=== PATIENT | female | born 1935 | race Caucasian/White ===

== ENCOUNTER 2017-09-01 10:49 | Inpatient (IN) | payer OTHER ==
[~2017-09-01] VITALS: Ht 162.6 cm; Wt 57.6 kg
--- NOTE | ~2017-09-01 | D ---
[facility] [place] [address] DISCHARGE SUMMARY Name: OSCAR ROA Room #: 411-P [facility] IN M.R.#: [id number] Admission: 09/01/17 Attend Phys: Armani Do MD Discharge: 09/06/17 Date of : 34 Report #: [id number] THIS REPORT FOR: //name// CC: Armani Do DATE OF SERVICE: 09/06/2017 FINAL DIAGNOSES: 1. Right hip fracture. 2. Moderate protein-calorie malnutrition. 3. Anemia due to acute blood loss. HOSPITAL COURSE: The patient was admitted with right hip pain, diagnosed with a hip fracture. She was taken by ortho to the operating room and had an IM nail procedure. Postoperatively, she was on a nonweightbearing status. She had a mild dip in her hemoglobin, but no need for transfusion. She had no other interval complication. DISPOSITION: She will be transferred to [facility]. I will follow her stay there. I signed her transfer orders and medications. She will continue DVT prophylaxis with Lovenox. By: [id number] Nakul Black MD /nt
--- NOTE | ~2017-09-01 | O ---
[facility] [place] [address] OPERATIVE REPORT Name: OSCAR ROA Room #: 411-P ADM IN M.R.#: [id number] Admission: 09/01/17 Attend Phys: Armani Do MD Discharge: Date of : 34 Report #: [id number] THIS REPORT FOR: //name// CC: Armani Do DATE OF SERVICE: 09/02/2017 SERVICE: Orthopedics. FACILITY: [facility]. SURGEON: Milton Tolbert MD LATEX DIPPER: None. PREOPERATIVE DIAGNOSIS: Displaced right intertrochanteric hip fracture. POSTOPERATIVE DIAGNOSIS: Displaced right intertrochanteric hip fracture. PROCEDURE: IM nail treatment of right intertrochanteric hip fracture. COMPLICATIONS: None. DRAINS: None. SPECIMENS: None. ANESTHESIA TYPE: General endotracheal. FINDINGS: 1. Good reduction on fluoroscopy. 2. Lozano and Nephew InterTAN intramedullary nail, size 10 mm x 125 degree neck, short nail with 90 and 85 mm compression screws proximally and third 8 mm distal locking screw. HISTORY AND INDICATIONS: The patient is an 82-year-old female who fell and sustained a right hip fracture. She was admitted to [facility] and surgical treatment was discussed in detail with her primary power of insurance attorney, who is her cousin Randall. Risks, benefits, alternatives and indication for surgery were discussed. Risks include but not limited to pain, bleeding, infection, injury to nerves or blood vessels, persistent pain despite surgical intervention, failure of any repairs or reconstruction, malunion, nonunion, need for further surgery including revision as well as hardware removal and complications related to anesthesia such as stroke, heart attack, pulmonary complications, thromboembolic disease and . Despite these risks, she wished to proceed. [facility] [address] [place] [address] OPERATIVE REPORT Name: CANDACE ROAJORIE Room #: 411-P [facility] IN .R.#: [id number] Admission: 09/01/17 Attend Phys: Armani Do MD Discharge: Date of : 34 Report #: [id number] PROCEDURE IN DETAIL: After right lower extremity was correctly identified in preoperative holding area as the operative extremity, the patient was taken to the operating room and placed supine on the operating table after general endotracheal anesthesia was induced without complication. She was padded appropriately. Prophylactic antibiotics were administered at appropriate time. C-arm was used to evaluate the right hip. A timeout procedure was performed. A reduction maneuver was performed with abduction followed by traction, adduction and internal rotation, checking on multiple planes of x-ray. Feeling appropriate reduction had been achieved, then the right leg was prepped and draped in standard sterile fashion. Under fluoroscopy, a guidepin was placed in the proximal femur in a standard fashion and advanced into the metaphyseal bone. When the appropriate guide pin position was confirmed on multiple planes of x-ray, an entry reamer was used to obtain access to the femoral canal. The canal was then reamed to an 11.5 mm diameter canal to allow a 10 mm Lozano and Nephew InterTAN nail. This was then advanced in a standard fashion down to the appropriate level. The reduction was maintained. Then, the outrigger was used to establish the trajectory for the compression screws and the guide pin was placed into the femoral head, confirming on biplanar x-ray that the position was appropriate. The proximal femur was then reamed and drilled for the proximal locking screws with plan for approximately 5 mm of compression. The first screw was placed in the proximal position and then the second screw was placed distally providing compression while fluoroscopy was followed to ensure maintenance of a good reduction. This did in fact provide excellent compression and essentially anatomic reduction. After the compression was completed, the guide sleeve was removed and then using the outrigger the distal interlocking screw was placed in the appropriate position, confirmed on multiple planes of x-ray and then the outrigger was removed. Final x-rays were taken and the incisions were irrigated and then closed with 0 Vicryl suture deep followed by 2-0 Vicryl and skin wilbert. Sterile dressing was applied. The patient was awakened from anesthesia and taken to recovery room in stable condition. There were no complications. All counts were recorded as correct. ESTIMATED BLOOD LOSS: 100 mL. <ELECTRONICALLY SIGNED> By: Milton Tolbert MD 09/02/17 2232 [id number] Milton Tolbert MD /nt
--- NOTE | ~2017-09-01 | H ---
[facility] [place] [address] HISTORY AND PHYSICAL Name: OSCAR ROA Room #: 411-P ADM IN M.R.#: [id number] Admission: 09/01/17 Attend Phys: Armani Do MD Discharge: Date of : 34 Report #: [id number] THIS REPORT FOR: //name// CC: Armani Do DATE OF SERVICE: 09/01/2017 HISTORY OF PRESENT ILLNESS: This is an 82-year-old female from [facility] with accidental fall. She lives in assisted living and did not have any lightheadedness just fell accidentally and broke her right hip. She is now admitted for further evaluation and hip pinning. PAST MEDICAL HISTORY: Noteworthy for those findings in the HPI, but of importance is recent gastrointestinal bleed, apparently she was at [facility]. She was given blood. I do not have the details of why the bleeding occurred. MEDICATIONS: Amlodipine, divalproex or Depakote, escitalopram, loratadine. ALLERGIES: She has no known drug allergies. FAMILY HISTORY: Noncontributory. SOCIAL HISTORY: She lives at [facility]. No smoking or alcohol. REVIEW OF SYSTEMS: No other complaints and she denies any evidence of GI bleeding at this time. PHYSICAL EXAMINATION: GENERAL: Shows her to be very pale. VITAL SIGNS: However, were stable. HEENT: Otherwise, negative. NECK: Supple, without thyromegaly or adenopathy. CHEST: Clear. CARDIOVASCULAR: Shows a regular rate and rhythm without murmur. ABDOMEN: Soft and nontender, without hepatosplenomegaly. EXTREMITIES: Showed the right leg to be shortened. I did not move it because of the known right hip fracture. ASSESSMENT AND PLAN: This is a patient with an accidental fall, who has a right hip fracture and needs intramedullary nail, but the issue today is anemia. Hemoglobin on admission was 9.1, subsequent to that 6.8 and now has been given 1 unit of blood, not sure of the status of her bleeding at this time and so, we [facility] [address] [address] HISTORY AND PHYSICAL Name: OSCAR ROA Room #: 411-P [facility] IN ..#: [id number] Admission: 09/01/17 Attend Phys: Armani Do MD Discharge: Date of : 34 Report #: [id number] will cancel surgery for today and hopefully try to stabilize her hemoglobin situation. By: [id number] Fabien Gomez MD /PMT
--- NOTE | ~2017-09-01 | EKG ---
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
[2017-09-01 10:50] VITALS: BP 152/50
[2017-09-01] MEDS ORDERED: ALEVE220 MG PO (11:07)
[2017-09-01] MEDS ORDERED: NORVASC5 MG PO (11:07)
[2017-09-01 11:08] LABS: ABSOLUTE NEUTROPHILS 8.1 thou/uL (1.4-8.2); MONOCYTES 2.4 % (1.0-8.0)
[2017-09-01] MEDS ORDERED: [UNRECOGNIZED DRUG - OTHER] PO (11:08)
[2017-09-01] MEDS ORDERED: DEPAKOTE 250MG250 M1 PO (11:09)
[2017-09-01 11:10] LABS: BASOPHILS 0.4 % (0.0-2.0); EOSINOPHILS 0.3 % (0.0-3.0); HEMATOCRIT 26.5 % (37.0-47.0); HEMOGLOBIN 9.1 gm/dL (12.0-15.0); LYMPHOCYTES 14.9 % (24.0-44.0); MCH 32.1 pg (26.0-34.0); MCHC 34.3 g/dL (28.0-37.0); MCV 93.6 fL (80.0-100.0); PLATELET COUNT 292 thou/uL (150-400); RBC 2.83 mil/uL (4.20-5.00); RDW 15.3 % (10.5-14.5); WBC 9.9 thou/uL (4.0-11.0)
[2017-09-01 11:11] LABS: MANUAL DIFF NO
[2017-09-01] MEDS ORDERED: MAPAP325 MG PO (11:11)
[2017-09-01] MEDS ORDERED: LEXAPRO 10 MG T10 M1 PO (11:11)
[2017-09-01] MEDS ORDERED: CLARITIN10 MG PO (11:11)
[2017-09-01 11:16] LABS: CALCIUM 8.9 mg/dL (8.5-10.1); CREATININE 0.7 mg/dL (0.6-1.0); POTASSIUM 3.9 mmol/L (3.5-5.1)
[2017-09-01] MEDS ORDERED: LIDOCAINE VISC100 ML PO (11:16)
[2017-09-01 11:22] LABS: ALBUMIN 2.7 g/dL (3.4-5.0); TOTAL BILIRUBIN 0.3 mg/dL (<0.1-1.0); TOTAL PROTEIN 6.5 g/dL (6.4-8.2)
[2017-09-01 11:34] VITALS: BP 141/42
[2017-09-01 14:15] VITALS: BP 117/42
[2017-09-01 14:36] VITALS: BP 148/55
[2017-09-01 20:10] VITALS: BP 131/50
[2017-09-02] VITALS (11 sets, daily range): BP systolic 99–143; BP diastolic 38–88
[2017-09-02 03:50] LABS: MCH 31.8 pg (26.0-34.0)
[2017-09-02 03:52] LABS: HEMATOCRIT 20.2 % (37.0-47.0); MCHC 33.4 g/dL (28.0-37.0); MCV 95.3 fL (80.0-100.0); RBC 2.12 mil/uL (4.20-5.00); RDW 15.7 % (10.5-14.5); WBC 5.2 thou/uL (4.0-11.0)
[2017-09-02 04:10] LABS: HEMOGLOBIN 6.8 gm/dL (12.0-15.0)
[2017-09-02 11:16] LABS: HEMATOCRIT 26.3 % (37.0-47.0)
[2017-09-03 03:45] VITALS: BP 112/51
[2017-09-03 06:21] LABS: HEMATOCRIT 26.3 % (37.0-47.0); MCH 31.6 pg (26.0-34.0); MCHC 34.4 g/dL (28.0-37.0); MCV 91.9 fL (80.0-100.0); RBC 2.86 mil/uL (4.20-5.00); RDW 16.2 % (10.5-14.5); WBC 5.8 thou/uL (4.0-11.0)
[2017-09-03 06:27] LABS: CALCIUM 8.3 mg/dL (8.5-10.1); CREATININE 0.5 mg/dL (0.6-1.0); POTASSIUM 4.2 mmol/L (3.5-5.1)
[2017-09-03 08:13] VITALS: BP 134/50
[2017-09-03 15:10] VITALS: BP 120/51
[2017-09-03 21:28] VITALS: BP 136/61
[2017-09-04 05:30] VITALS: BP 105/43
[2017-09-04 06:00] LABS: HEMATOCRIT 25.7 % (37.0-47.0); HEMOGLOBIN 8.7 gm/dL (12.0-15.0); MCH 31.4 pg (26.0-34.0); MCHC 33.9 g/dL (28.0-37.0); MCV 92.6 fL (80.0-100.0); RBC 2.77 mil/uL (4.20-5.00); RDW 15.5 % (10.5-14.5); WBC 4.9 thou/uL (4.0-11.0)
[2017-09-04 09:28] VITALS: BP 130/58
[2017-09-04 15:48] VITALS: BP 146/52
[2017-09-04 20:55] VITALS: BP 126/47
[2017-09-05 05:32] LABS: HEMATOCRIT 27.2 % (37.0-47.0); HEMOGLOBIN 9.1 gm/dL (12.0-15.0); MCH 30.9 pg (26.0-34.0); MCHC 33.6 g/dL (28.0-37.0); RBC 2.96 mil/uL (4.20-5.00); RDW 15.5 % (10.5-14.5); WBC 4.5 thou/uL (4.0-11.0)
[2017-09-05 05:45] LABS: CALCIUM 8.7 mg/dL (8.5-10.1); CREATININE 0.5 mg/dL (0.6-1.0); POTASSIUM 3.4 mmol/L (3.5-5.1)
[2017-09-05 06:46] VITALS: BP 121/49
[2017-09-05 07:40] VITALS: BP 123/50
[2017-09-05 16:49] VITALS: BP 134/54
[2017-09-05 18:26] VITALS: BP 146/58
[2017-09-05 20:00] VITALS: BP 114/46
[2017-09-06 04:00] VITALS: BP 130/52
[2017-09-06 06:33] LABS: HEMATOCRIT 25.7 % (37.0-47.0); HEMOGLOBIN 8.7 gm/dL (12.0-15.0)
[2017-09-06 08:00] VITALS: BP 130/76
[2017-09-06] MEDS ORDERED: HYDROCODON-ACE1 EAC7 PO (12:07)
[2017-09-06] MEDS ORDERED: ENOXAPARIN30 MG/0.1 SUBQ (12:07)
[2017-09-06] MEDS ORDERED: TYLENOL325 MG PO (12:08)
[2017-09-06 16:26] VITALS: BP 156/59
== END 2017-09-06 18:03 | DRG 480 ==
LOC: ER 10:49 → EROBS 11:32 → 4N 11:32
PROVIDERS: Internal Medicine; Internal Medicine Geriatric Medicine; Orthopaedic Surgery Sports Medicine; Physician Assistant
PROC: 0QS606Z Reposition Right Upper Femur with Intramedullary Internal Fixation Device, Open Approach (ICD-10-PCS; principal; 2017-09-02)
PROC: 30233N1 Transfusion of Nonautologous Red Blood Cells into Peripheral Vein, Percutaneous Approach (ICD-10-PCS; 2017-09-02)
DX: S72.141A Displaced intertrochanteric fracture of right femur, initial encounter for closed fracture (principal); E43 Unspecified severe protein-calorie malnutrition; D62 Acute posthemorrhagic anemia; W18.39XA Other fall on same level, initial encounter; M25.571 Pain in right ankle and joints of right foot; Z79.899 Other long term (current) drug therapy; Y93.89 Activity, other specified; Y92.090 Kitchen in other non-institutional residence as the place of occurrence of the external cause; Y99.8 Other external cause status; Z68.21 Body mass index [BMI] 21.0-21.9, adult
CPT/HCPCS: 10091; 50010; 50101; 50386; 51412; 51538; 52304; 55445; 56525; 56526; 57092; 62110; 62900; 65090; 70005

== ENCOUNTER 2021-02-09 20:54 | Inpatient (IN) | payer OTHER ==
[~2021-02-09] VITALS: Ht 162.6 cm; Wt 54.0 kg
--- NOTE | ~2021-02-09 | EMS ---
[address] [address] EMS Patient Care Report Name: OSCAR ROA Room #: 453-P [facility] IN M.R.#: [id number] Admission: 02/09/21 Attend Phys: Hraitha Huitron Discharge: 02/12/21 Date of : 34 Report #: [id number] THIS REPORT FOR: //name// Report Transmitted: 03/08/2021 14:05 EMS Care Summary [place], [place] Incident [id number] @ 02/09/2021 20:17 Incident Location [address] Patient OSCAR ROA Female, 88 Years 1933-01-20 Patient Address [address] [place] [address] Patient History Hypertension (HTN), Patient Allergies No known allergies, Chief Complaint blood in urine Disposition Transported No Lights/[place] Dispatch Reason Hemorrhage/Laceration Transported To [facility] Narrative patient is a resident of the intermediate. patient is awaiting ems in a wc with p41 crew, patient is being sent out for evaluation in the er for urinary issues. staff reports patient has been having blood in her urine since this am. patient is also having pain in the vaginal area. patient denies and abdominal pain, no nausea or vomiting. patient placed on the cot and into the unit, v.s. [address] [address] EMS Patient Care Report Name: OSCAR ROA Room #: 453-P [facility] IN M.R.#: [id number] Admission: 02/09/21 Attend Phys: Haritha Huitron Discharge: 02/12/21 Date of : 34 Report #: [id number] established, patient transported to the er 0 s/s of distress. Initial Vitals @20:34P: 96,R: 16,BP: 187/76,Pain: 0/10,GCS: 15,CO: 0,SpO2: 91,Revised Trauma: 12, Assessments @20:27MENTAL:Person Oriented,Time Oriented,Place Oriented,Event Oriented,SKIN:No Abnormalities,HEENT:Head/Face: No Abnormalities,Neck/Airway: No Abnormalities,LUNG SOUNDS:General: No Abnormalities,Left Upper: No Abnormalities,Right Upper: No Abnormalities,Left Lower: No Abnormalities,Right Lower: No Abnormalities,ABDOMEN:General: No Abnormalities,Left Upper: No Abnormalities,Right Upper: No Abnormalities,Left Lower: No Abnormalities,Right Lower: No Abnormalities,PELVIS//GI:Hematuria,Pelvis GUOther,EXTREMITIES:Left Arm: No Abnormalities,Right Arm: No Abnormalities,Left Leg: No Abnormalities,Right Leg: No Abnormalities,PULSE:Radial: 2+ Normal,NEURO:No Abnormalities, Impression Urinary Tract Infection (UTI) Procedures @20:27ALS AssessmentResponse: UnchangedSucceeded Timeline 20:15,Call Received 20:15,Dispatch Notified 20:17,Dispatched 20:17,En Route 20:25,On Scene 20:27,At Patient 20:27,ALS Assessment,Response: UnchangedSucceeded, 20:34,BP: 187/76 M,PULSE: 96,RR: 16 R,SPO2: 91 Ox,ETCO2: ,BG: ,PAIN: 0,GCS: 15, 20:35,Depart Scene 20:48,At Destination 21:04,Call Closed Disclaimer v1.1 Copyright 2020 [employer] This EMS Care Summary contains data elements from the applicable legal record (which may be displayed differently). It is designed to provide pertinent information for the following purposes: continuity of care, clinical quality, and state data reporting. The complete legal record is available to ED staff and administrators of the receiving hospital in [facility]'s Patient Tracker. All data is provided "as is."
[2021-02-09 20:54] VITALS: BP 190/76
[~2021-02-09 20:54] MED LIST: ALEVE220 MG PO; CLARITIN10 MG PO; DEPAKOTE 250MG250 M1 PO; ENOXAPARIN30 MG/0.1 SUBQ; HYDROCODON-ACE1 EAC7 PO; LEXAPRO 10 MG T10 M1 PO; LIDOCAINE VISC100 ML PO; MAPAP325 MG PO; NORVASC5 MG PO; TYLENOL325 MG PO; [UNRECOGNIZED DRUG - OTHER] PO
[2021-02-09 21:30] LABS: URINE BILIRUBIN 1+ (Negative); URINE BLOOD 3+ (Negative); URINE CLARITY TURBID; URINE COLOR RED; URINE GLUCOSE-RANDOM* NEGATIVE (Negative); URINE KETONES TRACE (Negative); URINE LEUKOCYTES-REFLEX 2+ (Negative); URINE NITRITE-REFLEX POSITIVE (Negative); URINE PROTEIN (DIPSTICK) 3+ (Negative); URINE SPECIFIC GRAVITY 1.015 (1.005-1.035)
[2021-02-09 21:46] LABS: CASTS None Seen /LPF (None Seen); SQUAMOUS None Seen /LPF (0-3); URINE RBC >20 Many /HPF (NONE SEEN)
[2021-02-09 21:47] LABS: BACTERIA-REFLEX 1-9 Few /HPF (None Seen); CRYSTALS None Seen /LPF (None Seen)
[2021-02-09 21:52] LABS: CALCIUM 9.6 mg/dL (8.5-10.1); CREATININE 1.1 mg/dL (0.6-1.0); POTASSIUM 4.4 mmol/L (3.5-5.1)
[2021-02-09 21:57] LABS: HEMATOCRIT 25.1 % (37.0-47.0); HEMOGLOBIN 8.4 gm/dL (12.0-15.0); MCH 36.7 pg (26.0-34.0); MCHC 33.5 g/dL (28.0-37.0); MCV 109.4 fL (80.0-100.0); PLATELET COUNT 106 thou/uL (150-400); RDW 14.2 % (10.5-14.5)
[2021-02-09 22:44] LABS: ANISOCYTOSIS 1+; MACROCYTES 2+; PLATELET ESTIMATE DECREASED; POIKILOCYTOSIS 1+
[2021-02-10 03:16] VITALS: BP 198/69
[2021-02-10 04:20] VITALS: BP 125/63
--- NOTE | 2021-02-10 04:42 | NUR ---
Pt. admitted to the unit from the emergency room accompanied by staff. She is alert and oriented. Pt. offers no complaints. Admission assessment and history is completed. Bed alarm is on.
[2021-02-10 06:10] LABS: HEMATOCRIT 23.2 % (37.0-47.0); HEMOGLOBIN 7.9 gm/dL (12.0-15.0); MCH 37.2 pg (26.0-34.0); MCHC 33.8 g/dL (28.0-37.0); RBC 2.11 mil/uL (4.20-5.00); WBC 9.3 thou/uL (4.0-11.0)
[2021-02-10 06:25] LABS: CREATININE 0.9 mg/dL (0.6-1.0); POTASSIUM 4.1 mmol/L (3.5-5.1)
[2021-02-10 08:46] VITALS: BP 139/67
--- NOTE | 2021-02-10 11:52 | NUR ---
PT ADMITTED RELATED TO UTI AND WEAKNESS. CM REVIEWED CHART AND SPOKE WITH CARE TEAM. CM MET WITH PT AT BEDSIDE THIS DAY. PT APPEARED TO BE A&O X4. CM ROLE INTRODUCED. PT INDICATED SHE LIVES ON SECOND FLOOR ASSISTED LIVING LEVEL [facility]. PT INDICATED SHE HAS A 4WW AND A WC FOR USE AT HOME. PT INDICATED SHE GETS ASSISTANCE FROM THE STAFF AND SISTERS FOR ANYTHING SHE NEEDS. PT INDICATED HER COUSIN GENIE (ROBERTA) IS HER DPOA. CM CALLED AND SPOKE WITH HIM. HE INDICATED THAT HE WOULD COME AND VISIT PT TODAY. CM SPOKE WITH NAKUL AT [facility]. CM TO FAX CLINICAL OVER TO THEM. CM TO FOLLOW INDICATED WITH DC PLANNING.
--- NOTE | 2021-02-10 17:56 | NUR ---
ASSUMED CARE OF PATIENT AT APPROX. 0700 UPON SHIFT CHANGE. MEDICATIONS ADMINISTERED PER EMAR. VSS. PATIENT IS A&OX4 BUT SLOW TO RESPOND AT TIMES. PATIENT WORKED WITH PT/OT AND IS UPX1 TO BSC. APPETITE IS SOMEWHAT POOR; PATIENT CHOOSES TO EAT CARBOHYDRATES AND SWEETS; REFUSED EGGS FOR BREAKFAST AND REFUSED MEAL ENTREE FOR DINNER. ABX INFUSED ON R AC; PATIENT VOICED DISCOMFORT ON IV SITE HOWEVER NO INDICATIONS OF PHLEBITIS OR INFILTRATION NOTED. [facility] CALLED FOR UPDATE AND FAXED MED LIST. AWAITING UPDATES OR FURTHER INTERVENTIONS. FALL PRECAUTIONS IN PLACE. WILL CONTINUE TO MONITOR
[2021-02-10 20:34] VITALS: BP 139/55
[2021-02-11 05:15] LABS: HEMATOCRIT 22.8 % (37.0-47.0); HEMOGLOBIN 7.6 gm/dL (12.0-15.0); MCH 36.8 pg (26.0-34.0); MCHC 33.5 g/dL (28.0-37.0); MCV 109.9 fL (80.0-100.0); RBC 2.07 mil/uL (4.20-5.00); RDW 14.1 % (10.5-14.5); WBC 13.5 thou/uL (4.0-11.0)
--- NOTE | 2021-02-11 06:04 | NUR ---
Pt. rested quietly at intervals during the night when checked on during frequent rounds. She offers no c/o pain. Bed alarm is on.
[2021-02-11 07:20] VITALS: BP 131/61
--- NOTE | 2021-02-11 15:43 | NUR ---
PT CONTINUES ON IV CEFTRIAXONE AND IS WORKING WITH PT AND OT. CM SPOKE WITH NAKUL IN ADMISSIONS THIS AM AND PROVIDED UPDATE. CM FOLLOWING REGARDING DC PLANNING.
[2021-02-11 15:47] VITALS: BP 136/45
[2021-02-11 19:31] VITALS: BP 123/52
--- NOTE | 2021-02-11 20:30 | NUR ---
Assumed pt care this am, vs stable. No signs or verbalizations of distress noted. Refused meals and request for yoghurt and supplement. POC followed, stayed on the recliner for most of the day. No clots were noted in the bedside commode. Endorsed to the night nurse.
--- NOTE | 2021-02-12 05:39 | NUR ---
Pt. rested quietly at intervals during the night when checked on during frequent rounds. She offers no c/o pain. No noted hematuria or vaginal bleeding. Bed alarm is on.
[2021-02-12 09:43] VITALS: BP 166/84
[2021-02-12] MEDS ORDERED: CEFUROXIME500 MG PO (10:10)
[2021-02-12 10:57] VITALS: BP 166/84
--- NOTE | 2021-02-12 12:35 | NUR ---
ASSUMED CARE OF PATIENT AT SHIFT CHANGE. ASSESSMENT CHARTED. MEDICATIONS ADMINISTERED PER EMAR. VSS. PATIENT IS ALERT AND ORIENTED, CALLS NEEDED; SOMEWHAT SLOW TO ANSWER. PATIENT TRANSFERS X1 TO CHAIR AND BEDSIDE COMMODE & AMBULATED WITH PT AND TOLERATED WELL. APPETITE STILL SOMEWHAT POOR, PREFERRING CARBS AND SWEETS. PATIENT EDUCATED ON IMPORTANCE OF BETTER DIET. COVID SWAB COMPLETE. PROVIDER SAW PATIENT AND DETERMINED SHE IS READY FOR DISCHARGE. WILL CONTINUE TO MONITOR UNTIL DISCHARGE. FALL PRECAUTIONS IN PLACE
--- NOTE | 2021-02-12 15:44 | NUR ---
CARE TEAM INDICATED THAT PT IS MEDICALLY STABLE TO DISCHARGE BACK TO [facility] SECOND FLOOR AL THIS DAY. CM FAXED ORDERS AND NEGATIVE COVID TEST. CM ARRANGED [facility] BETWEEN [phone]. CM CALLED AND NOTIFIED PT'S COUSIN GENIE. CM FAXED DR. PEGN MATTHEWS NOTE TO NAKUL AT [facility] INDICATING DESIRE TO ELECT [facility] IN THE NEAR FURTURE. CHART COPY MADE. NURSE GIVEN NUMBER FOR REPORT. NO OTHER CM INTERVENTION INDICATED. CASE CLOSED.
== END 2021-02-12 17:27 | DRG 871 ==
LOC: ER 20:54 → 4W 22:39 → EROBS 22:39 → 4W 02-10 04:02
PROVIDERS: Nurse Practitioner; ADMIT Hospitalist; ATTEND Hospitalist
DX: A41.9 Sepsis, unspecified organism (principal); G93.41 Metabolic encephalopathy; N39.0 Urinary tract infection, site not specified; R31.9 Hematuria, unspecified; Z20.822 Contact with and (suspected) exposure to COVID-19; I10 Essential (primary) hypertension; M19.90 Unspecified osteoarthritis, unspecified site; K21.9 Gastro-esophageal reflux disease without esophagitis; F32.9 Major depressive disorder, single episode, unspecified; Z66 Do not resuscitate; N93.9 Abnormal uterine and vaginal bleeding, unspecified; F03.90 Unspecified dementia, unspecified severity, without behavioral disturbance, psychotic disturbance, mood disturbance, and anxiety; D64.9 Anemia, unspecified; F20.9 Schizophrenia, unspecified; Z86.73 Personal history of transient ischemic attack (TIA), and cerebral infarction without residual deficits; Z79.899 Other long term (current) drug therapy
CPT/HCPCS: 10047

== ENCOUNTER 2021-07-07 20:49 | Inpatient (IN) | payer OTHER ==
[~2021-07-07] VITALS: Ht 162.6 cm; Wt 53.1 kg
--- NOTE | ~2021-07-07 | EMS ---
[place] [id number] EMS Patient Care Report Name: OSCAR ROA Room #: 213-P ADM IN M.R.#: [id number] Admission: 07/07/21 Attend Phys: Dhaval Mosqueda MD Discharge: Date of : 34 Report #: [id number] THIS REPORT FOR: //name// Report Transmitted: 07/09/2021 10:15 EMS Care Summary [place], [place]/[facility] Incident [id number] @ 07/07/2021 19:50 Incident Location [address] Patient OSCAR ROA Female, 86 Years 1935 Patient Address [address] [place] [address] Patient History Hypertension (HTN),Bipolar II Disorder,Schizoaffective Disorder, Patient Allergies No known allergies, Patient Medications Ferrous Sulfate, Neurontin, Cymbalta, Meloxicam, Cyanocobalamin Co57, Chief Complaint Low Hgb Disposition Transported No Lights/[place] Dispatch Reason Transfer/Interfacility/Palliative Care Transported To [facility] Narrative Transfer for pt needing a blood transfusion for low Hgb. Upon arrival, report from RN. Pt moved to the EMS cot and loaded into the amb w/o incident. Vitals obtained. Attempt IV x 2 w/o success. D-stick. Vitals repeated. En route; [address] [address] EMS Patient Care Report Name: OSCAR ROA Room #: 213-P [facility] IN M.R.#: [id number] Admission: 07/07/21 Attend Phys: Dhaval Mosqueda MD Discharge: Date of : 34 Report #: [id number] No changes. RR to the ER. Arrived: pt moved to ER HW bed, pt care & report to ER staff. Initial Vitals @20:24P: 93,R: 16,BP: 135/71,Pain: 0/10,GCS: 15,Glucose: 150,CO: 5,SpO2: 95,Revised Trauma: 12, @20:16P: 99,R: 16,BP: 158/72,Pain: 0/10,GCS: 15,CO: 1,SpO2: 95,Revised Trauma: 12, Assessments @20:05MENTAL:Person Oriented,Time Oriented,Event Oriented,Place Oriented,SKIN:Pale,HEENT:LUNG SOUNDS:ABDOMEN:PELVIS//GI:EXTREMITIES:Left Arm: No Abnormalities,Right Arm: No Abnormalities,Left Leg: No Abnormalities,Right Leg: No Abnormalities,PULSE:Radial: 2+ Normal,NEURO:No Abnormalities, Impression Generalized Weakness Procedures @20:28 IV Therapy - Saline Lock cc (18 ga) Site: Antecubital-Left Response: UnchangedFailed @20:28 IV Therapy - Saline Lock cc (18 ga) Site: Forearm-Left Response: UnchangedFailed @20:05 ALS Assessment Response: UnchangedSucceeded @20:31 Stretcher Response: Unchanged Timeline 17:34,Call Received 17:34,Dispatch Notified 19:50,Dispatched 19:51,En Route 20:03,On Scene 20:05,At Patient 20:05,ALS Assessment,Response: UnchangedSucceeded, 20:14,Depart Scene 20:16,BP: 158/72 M,PULSE: 99,RR: 16 R,SPO2: 95 Ox,ETCO2: ,BG: ,PAIN: 0,GCS: 15, 20:24,BP: 135/71 M,PULSE: 93,RR: 16 R,SPO2: 95 Ox,ETCO2: ,B,PAIN: 0,GCS: 15, 20:28,IV Therapy - Saline Lock cc 18 ga Site: Antecubital-Left,Response: UnchangedFailed, 20:28,IV Therapy - Saline Lock cc 18 ga Site: Forearm-Left,Response: UnchangedFailed, 20:30,At Destination 20:31,Stretcher,Response: Unchanged 20:42,Call Closed [address] [address] EMS Patient Care Report Name: OSCAR ROA Room #: 213-P ADM IN M.R.#: [id number] Admission: 07/07/21 Attend Phys: Dhaval Mosqueda MD Discharge: Date of : 34 Report #: [id number] Disclaimer v1.1 Copyright 2020 [employer] This EMS Care Summary contains data elements from the applicable legal record (which may be displayed differently). It is designed to provide pertinent information for the following purposes: continuity of care, clinical quality, and state data reporting. The complete legal record is available to ED staff and administrators of the receiving hospital in [facility]'s Patient Tracker. All data is provided "as is."
[~2021-07-07 20:49] MED LIST changes: +CEFUROXIME500 MG PO
[2021-07-07 20:51] VITALS: BP 153/64
[2021-07-07 21:37] LABS: MCH 33.7 pg (26.0-34.0); MCHC 32.5 g/dL (28.0-37.0); RDW 15.1 % (10.5-14.5); WBC 15.1 thou/uL (4.0-11.0)
[2021-07-07 21:39] LABS: MCV 103.8 fL (80.0-100.0); PLATELET COUNT 95 thou/uL (150-400); RBC 1.72 mil/uL (4.20-5.00)
[2021-07-07 21:49] LABS: HEMATOCRIT 17.8 % (37.0-47.0); HEMOGLOBIN 5.8 gm/dL (12.0-15.0)
[2021-07-07 22:04] LABS: CALCIUM 9.1 mg/dL (8.5-10.1); CREATININE 1.3 mg/dL (0.6-1.0); POTASSIUM 4.8 mmol/L (3.5-5.1)
[2021-07-07 22:16] LABS: ALBUMIN 2.3 g/dL (3.4-5.0); TOTAL BILIRUBIN 0.2 mg/dL (0.2-1.0)
[2021-07-07 22:37] LABS: ABSOLUTE NEUTROPHILS 0.3 thou/uL (1.4-8.2); ANISOCYTOSIS 1+; MACROCYTES 1+; PLATELET ESTIMATE DECREASED; POIKILOCYTOSIS 1+
[2021-07-07 23:25] VITALS: BP 152/97
[2021-07-07 23:50] VITALS: BP 152/97
[2021-07-08] VITALS (8 sets, daily range): BP systolic 132–176; BP diastolic 42–69
--- NOTE | 2021-07-08 02:01 | NUR ---
BLOOD TRANSFUSION COMPLETE@ 0200, POST TRANSFUSION VITALS ARE 149/60,98.2.HR 108,94%2L
[2021-07-08] MEDS ORDERED: FEOSOL325 M1 PO (03:21)
[2021-07-08] MEDS ORDERED: CYMBALTA30 MG PO (03:23)
[2021-07-08] MEDS ORDERED: VITAMIN C500 M1 PO (03:23)
[2021-07-08] MEDS ORDERED: B-12500 MCG PO (03:24)
[2021-07-08] MEDS ORDERED: NEURONTIN100 MG PO (03:24)
[2021-07-08] MEDS ORDERED: FOLIC ACID0.8 MG PO (03:25)
[2021-07-08] MEDS ORDERED: MOBIC7.5 MG PO (03:26)
[2021-07-08] MEDS ORDERED: LEXAPRO 10 MG T10 M1 PO (03:27)
[2021-07-08 03:43] LABS: HEMOGLOBIN 7.2 gm/dL (12.0-15.0)
[2021-07-08 04:53] LABS: HEMOGLOBIN 7.3 gm/dL (12.0-15.0); MCH 32.6 pg (26.0-34.0); MCHC 32.9 g/dL (28.0-37.0); MCV 99.1 fL (80.0-100.0); RBC 2.22 mil/uL (4.20-5.00); RDW 17.6 % (10.5-14.5); WBC 13.6 thou/uL (4.0-11.0)
[2021-07-08 05:26] LABS: ABSOLUTE RETIC COUNT 0.0542 10^6/uL; OBSERVED RETIC COUNT 2.37 % (0.6-2.6)
[2021-07-08 05:29] LABS: URINE BILIRUBIN NEGATIVE (Negative); URINE BLOOD 3+ (Negative); URINE CLARITY SL CLOUDY; URINE COLOR YELLOW; URINE GLUCOSE-RANDOM* NEGATIVE (Negative); URINE KETONES NEGATIVE (Negative); URINE LEUKOCYTES-REFLEX TRACE (Negative); URINE NITRITE-REFLEX NEGATIVE (Negative); URINE PROTEIN (DIPSTICK) 1+ (Negative); URINE SPECIFIC GRAVITY 1.015 (1.005-1.035); URINE UROBILINOGEN 0.2 E.U./dl (0.2-1.0)
[2021-07-08 05:36] LABS: CALCIUM 8.9 mg/dL (8.5-10.1); CREATININE 1.1 mg/dL (0.6-1.0); POTASSIUM 4.5 mmol/L (3.5-5.1)
[2021-07-08 05:46] LABS: % SATURATION 20 % (20-39); IRON 51 ug/dL (50-170); TIBC 249 ug/dL (250-450)
[2021-07-08 07:17] LABS: CASTS None Seen /LPF (None Seen); CRYSTALS None Seen /LPF (None Seen); SQUAMOUS 4-10 Moderate /LPF (0-3)
[2021-07-08 07:18] LABS: BACTERIA-REFLEX >30 Many /HPF (None Seen); URINE WBC-REFLEX 6-15 Few /HPF (0-5)
[2021-07-08 07:37] LABS: FOLIC ACID 78.9 ng/mL (8.6-58.9)
--- NOTE | 2021-07-08 14:03 | NUR ---
Case opened to follow. Vp Clinical Research spoke with her primary daytime nurse at [facility]. 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 Self propels in w/c and sba for txs. Lives on their RCF unit. She is a&ox3 but forgetful. Yannick, her cousin is her dpoa for hc and finances and he is available via [employer] [phone]. He is aware she is here and GI is attempting to reach him regarding possible EGD d/t gi bleed. Pt is getting blood today. Message left for the socialworker and clinical updated faxed. They are holding her room for her return. Pt has has this years flu vaccine and 2 covid vaccines. Will follow.
--- NOTE | 2021-07-08 15:21 | NUR ---
PT RECEIVED 1 UNIT OF PRBC, PER [facility] PROT[facility], HGB REDRAWN AND RESULTS PASSED TO GI-TRANSMISSION REBUILDER. PT SEEMS TO HAVE SOME INTERMITTEN CONFUSION. PT AFEBRILE, ADEQUATE UOP (THROUGH PURE-WICK), NO BM, PT NPO. OXYGEN TITRATED DOWN. PT AND FAMILY HAVE BEEN THOUROUGHLY UPDATED AND EDUCATED ON PT CONDITION AND POC, PT SLOWLY PROGRESSING TOWARDS POC.
--- NOTE | 2021-07-09 01:01 | NUR ---
ASSESSMENT: OOOO, NO CHANGES SINCE INITIAL ASSESSMENT DONE AT 07/07/21 @ 2000
--- NOTE | 2021-07-09 04:16 | NUR ---
PT REMAIN ALERT AND ORIENT TIMES 2-3, CONFUSED TO SITUATION. DENIES PAIN, N/V AND SOB. VSS, AFEBRILE. SR-ST PER MONITOR. PUREWICK WORKING FINE. UO ADEQUATE AMTS PER 12 HR SHIFT. NO BM. DNR NOTED. SLOW PROGRESS TOWARDS DC GOALS. WILL CONTINUE TO MONITOR.
[2021-07-09 05:27] VITALS: BP 166/68
[2021-07-09 08:27] VITALS: BP 149/50
[2021-07-09] MEDS ORDERED: NYAMYC15 GM TOP (11:51)
[2021-07-09] MEDS ORDERED: PROTONIX40 M4 PO (11:51)
[2021-07-09] MEDS ORDERED: CEPHALEXIN500 MG PO (14:32)
--- NOTE | 2021-07-09 14:33 | NUR ---
DC orders called and faxed to [facility] for return to the [facility] today. Pt's cousin/dpoa Jose Luis updated and he is agreeable. Pt very anxious to "get home". Jennifer in soc services aware and agreeable. W/c van setup and vouched per [facility] for 3:30 to 4pm pickup. Hgb stable. No EGD planned as stool occult was neg. Jose Luis to f/u with [facility] about regular labs and any iron supplements. Chart copy in progress and to be sent with pt. Nursing given the number for report.
--- NOTE | 2021-07-09 16:04 | NUR ---
PT IS AXOX3, UNCERTAIN ABOUT WHY SHE IS IN HOSPITAL; VSS AFEBRILE, SR ON THE MONITOR. DENIES PAIN, VERY ANXIOUS, STARTLES EASILY. SOME DIFFICULTY WITH SPEECH UNDERSTANDING HER NEEDS, BUT ABLE TO COMMUNICATE THEM. PT WAS ANXIOUS ABOUT POSSIBILITY OF EGD TODAY. DR SCHWAB CONSULTED; DR KHOURY INTERIOR DESIGN PROJECT MANAGER CONSULTED. PT COMMUNICATED UNDERSTANDING WITH INTERIOR DESIGN PROJECT MANAGER ABOUT MEETING HER GOALS. PT AGREEABLE TO GO BACK TO [facility]. PT DISCHARGED WITH W/C VAN TO FACILITY. REPORT CALLED TO [facility]. NO CONCERNS AT THIS TIME.
== END 2021-07-09 16:07 | DRG 811 ==
LOC: ER 20:49 → EROBS 22:16 → 2N 22:16
PROVIDERS: Emergency Medicine; Nurse Practitioner Family; ADMIT Hospitalist; ATTEND Hospitalist
PROC: 30233N1 Transfusion of Nonautologous Red Blood Cells into Peripheral Vein, Percutaneous Approach (ICD-10-PCS; principal; 2021-07-07)
DX: D62 Acute posthemorrhagic anemia (principal); E43 Unspecified severe protein-calorie malnutrition; R65.11 Systemic inflammatory response syndrome (SIRS) of non-infectious origin with acute organ dysfunction; N17.9 Acute kidney failure, unspecified; N39.0 Urinary tract infection, site not specified; Z20.822 Contact with and (suspected) exposure to COVID-19; I10 Essential (primary) hypertension; M19.90 Unspecified osteoarthritis, unspecified site; Z66 Do not resuscitate; R53.81 Other malaise; F25.0 Schizoaffective disorder, bipolar type; E53.8 Deficiency of other specified B group vitamins; F03.90 Unspecified dementia, unspecified severity, without behavioral disturbance, psychotic disturbance, mood disturbance, and anxiety; D69.6 Thrombocytopenia, unspecified; D72.829 Elevated white blood cell count, unspecified; B96.20 Unspecified Escherichia coli [E. coli] as the cause of diseases classified elsewhere; Z86.73 Personal history of transient ischemic attack (TIA), and cerebral infarction without residual deficits; Z87.891 Personal history of nicotine dependence; Z68.20 Body mass index [BMI] 20.0-20.9, adult; Z87.11 Personal history of peptic ulcer disease; Z79.899 Other long term (current) drug therapy
CPT/HCPCS: 10081

== ENCOUNTER 2021-08-03 13:37 | Inpatient (IN) | payer OTHER ==
[~2021-08-03] VITALS: Ht 162.6 cm; Wt 54.0 kg
--- NOTE | ~2021-08-03 | EMS ---
[facility] [address] [place] [address] EMS Patient Care Report Name: MATEUSZ ROA Room #: 203-P ADM IN M.R.#: [id number] Admission: 08/03/21 Attend Phys: Dhaval Mosqueda MD Discharge: Date of : 33 Report #: [id number] THIS REPORT FOR: //name// Report Transmitted: 08/05/2021 10:47 EMS Care Summary [place], [place]/[facility] Incident [id number] @ 08/03/2021 12:52 Incident Location [address] Patient OSCAR ROA Female, 86 Years 1935 Patient Address [address] [place] [address] Patient History Hypertension (HTN),Bipolar II Disorder,Schizoaffective Disorder, Patient Allergies No known allergies, Patient Medications Cymbalta, Ferrous Sulfate, Cyanocobalamin Co57, Neurontin, Meloxicam, Chief Complaint low hemoglobin Disposition Transported No Lights/[place] Reason Sick Person Transported To [facility] Narrative [place] lives [place], able to transfer self , but uses wheel chair to get around. she is confused but able to talk and answer questions. she hasnt been feeling well and labs done today and round she has low hemo globin. she has o2 for a mass [facility] [address] [place] [address] EMS Patient Care Report Name: MATEUSZ ROA Room #: 203-P [facility] IN .R.#: [id number] Admission: 08/03/21 Attend Phys: Dhaval Mosqueda MD Discharge: Date of : 34 Report #: [id number] found on her lung. pt alert and oriented to person and place only. taken to er with out incident. Initial Vitals @13:31P: 98,R: 16,BP: 126/70,SpO2: 98, @13:19P: 98,R: 16,BP: 126/98,Pain: 0/10,GCS: 14,SpO2: 99,Revised Trauma: 12, Assessments @13:27MENTAL:No Abnormalities,SKIN:No Abnormalities,HEENT:Head/Face: No Abnormalities,Eyes: No Abnormalities,Neck/Airway: No Abnormalities,LUNG SOUNDS:General: No Abnormalities,Left Upper: No Abnormalities,Right Upper: No Abnormalities,Left Lower: No Abnormalities,Right Lower: No Abnormalities,ABDOMEN:General: No Abnormalities,Left Upper: No Abnormalities,Right Upper: No Abnormalities,Left Lower: No Abnormalities,Right Lower: No Abnormalities,PELVIS//GI:No Abnormalities,EXTREMITIES:Left Arm: No Abnormalities,Right Arm: No Abnormalities,Left Leg: No Abnormalities,Right Leg: No Abnormalities,PULSE:NEURO:No Abnormalities, Impression Generalized Weakness Procedures @13:27 ALS Assessment Response: UnchangedSucceeded @13:27 Oxygen FlowRate: 2 Device: Nasal Cannula (NC) Response: UnchangedFailed Timeline 12:45,Call Received 12:45,Dispatch Notified 12:52,Dispatched 12:52,En Route 13:04,On Scene 13:08,At Patient 13:18,Depart Scene 13:19,BP: 126/98 M,PULSE: 98,RR: 16 R,SPO2: 99 Ox,ETCO2: ,BG: ,PAIN: 0,GCS: 14, 13:27,ALS Assessment,Response: UnchangedSucceeded, 13:27,Oxygen FlowRate: 2 Device: Nasal Cannula (NC) Response: UnchangedFailed, 13:31,BP: 126/70 M,PULSE: 98,RR: 16 R,SPO2: 98 Ox,ETCO2: ,BG: ,PAIN: ,GCS: , 13:34,At Destination 13:45,Call Closed Disclaimer v1.1 Copyright 2020 [employer] This EMS Care Summary contains data elements from the applicable legal record (which may be displayed differently). It is designed to provide pertinent information for the following purposes: continuity of care, clinical quality, [place] [address] EMS Patient Care Report Name: MATEUSZ ROA Room #: 203-P [facility] IN [facility].#: [id number] Admission: 08/03/21 Attend Phys: Dhaval Mosqueda MD Discharge: Date of : 34 Report #: [id number] and state data reporting. The complete legal record is available to ED staff and administrators of the receiving hospital in [employer]'s Patient Tracker. All data is provided "as is."
[~2021-08-03 13:37] MED LIST changes: +B-12500 MCG PO; +CEPHALEXIN500 MG PO; +CYMBALTA30 MG PO; +FEOSOL325 M1 PO; +FOLIC ACID0.8 MG PO; +MOBIC7.5 MG PO; +NEURONTIN100 MG PO; +NYAMYC15 GM TOP; +PROTONIX40 M4 PO; +VITAMIN C500 M1 PO
[2021-08-03 13:38] VITALS: BP 125/45
[2021-08-03] MEDS ORDERED: PROTONIX40 M2 PO (14:02)
[2021-08-03 14:46] LABS: MCHC 32.2 g/dL (28.0-37.0); RBC 2.05 mil/uL (4.20-5.00)
[2021-08-03 14:47] LABS: CALCIUM 9.6 mg/dL (8.5-10.1); CREATININE 1.2 mg/dL (0.6-1.0); POTASSIUM 4.2 mmol/L (3.5-5.1)
[2021-08-03 14:48] LABS: HEMATOCRIT 20.9 % (37.0-47.0); HEMOGLOBIN 6.7 gm/dL (12.0-15.0); MCH 32.7 pg (26.0-34.0); MCV 101.7 fL (80.0-100.0); RDW 21.6 % (10.5-14.5); WBC 19.3 thou/uL (4.0-11.0)
[2021-08-03 14:57] LABS: ALBUMIN 1.9 g/dL (3.4-5.0); TOTAL BILIRUBIN 0.4 mg/dL (0.2-1.0); TOTAL PROTEIN 7.1 g/dL (6.4-8.2)
[2021-08-03 14:58] LABS: APTT 29.1 Seconds (24.5-32.8); INR 1.07; PROTIME 11.6 Seconds (10.5-12.1)
[2021-08-03 15:36] LABS: ATYPICAL LYMPHS 1 %
[2021-08-03 15:45] LABS: PLATELET COUNT 76 thou/uL (150-400)
[2021-08-03 16:13] LABS: URINE BILIRUBIN NEGATIVE (Negative); URINE BLOOD 3+ (Negative); URINE CLARITY SL CLOUDY; URINE COLOR YELLOW; URINE GLUCOSE-RANDOM* NEGATIVE (Negative); URINE KETONES NEGATIVE (Negative); URINE NITRITE-REFLEX NEGATIVE (Negative); URINE PROTEIN (DIPSTICK) NEGATIVE (Negative); URINE UROBILINOGEN 0.2 E.U./dl (0.2-1.0)
[2021-08-03 16:17] LABS: URINE LEUKOCYTES-REFLEX 3+ (Negative)
[2021-08-03 16:24] LABS: CASTS None Seen /LPF (None Seen); SQUAMOUS >10 Many /LPF (0-3)
[2021-08-03 16:25] LABS: CRYSTALS None Seen /LPF (None Seen); URINE RBC >20 Many /HPF (NONE SEEN)
[2021-08-03 16:26] LABS: RENAL EPITHELIAL CELLS 4-10 Moderate /LPF (None Seen)
[2021-08-03 19:47] VITALS: BP 133/46
--- NOTE | 2021-08-03 19:50 | NUR ---
Talked with blood bank, pt + for antibody. Blood specimen will be sent out will take 2-4 hours or more for results to be able to produce blood unit for blood transfusion. ADRIAN Jim notified
[2021-08-03 20:00] VITALS: BP 134/45
[2021-08-03 23:39] VITALS: BP 113/36
[2021-08-04] VITALS (7 sets, daily range): BP systolic 133–174; BP diastolic 47–96
[2021-08-04 05:30] LABS: RBC 1.9 mil/uL (4.20-5.00)
[2021-08-04 05:32] LABS: MCH 33.7 pg (26.0-34.0); MCHC 33.1 g/dL (28.0-37.0); MCV 101.6 fL (80.0-100.0); RDW 21.8 % (10.5-14.5); WBC 16.6 thou/uL (4.0-11.0)
[2021-08-04 06:06] LABS: ALBUMIN 1.7 g/dL (3.4-5.0); CALCIUM 9.1 mg/dL (8.5-10.1); CREATININE 1.1 mg/dL (0.6-1.0); HEMATOCRIT 19.3 % (37.0-47.0); HEMOGLOBIN 6.4 gm/dL (12.0-15.0); POTASSIUM 3.7 mmol/L (3.5-5.1); TOTAL BILIRUBIN 0.5 mg/dL (0.2-1.0); TOTAL PROTEIN 6.6 g/dL (6.4-8.2)
--- NOTE | 2021-08-04 06:32 | NUR ---
PATIENT RECIEVED ONE UNITE OF PRBC. NO REACTION. WILL RECHECK Hbg AT 0730 PATIENT MAIN COMPLAINT IS THE PAIN IN HER FEET. ROUNDS WERE DONE THE BED IS IN A LOW AND LOCKED POSITION
--- NOTE | 2021-08-04 07:19 | EKG ---
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 : 1935 Requested By: Floridalma Ibrahim Order Number: [id number] MD: Valdemar Mckeon Measurements Intervals [place] Rate: 99 P: 84 ME: 158 QRS: 14 QRSD: 87 T: 39 QT: 329 QTc: 423 Interpretive Statements AFIb Borderline repol abnormality, lateral leads Baseline wander in lead(s) V1 Compared to ECG 09/01/2017 11:32:58 Sinus rhythm no longer present Electronically Signed On 08-04-2021 7:18:59 [facility] [employer]IST[employer] by Valdemar Mckeon [email or web address] <ELECTRONICALLY SIGNED> By: Valdemar Mckeon MD, [facility] 08/04/21 0718 1418 1418 Valdemar Mckeon MD, [facility] /EPI
[2021-08-04 08:03] LABS: HEMATOCRIT 26.7 % (37.0-47.0)
[2021-08-04 08:08] LABS: HEMOGLOBIN 8.8 gm/dL (12.0-15.0)
--- NOTE | 2021-08-04 13:00 | 2DMMODE ---
[facility] [place] [address] [place] [address] 2 D/M-MODE ECHOCARDIOGRAM Name: MATEUSZ ROA Room #: 203-P ADM IN M.R.#: [id number] Admission: 08/03/21 Attend Phys: Dhaval Mosqueda MD Discharge: Date of : 34 Report #: [id number] THIS REPORT FOR: cc: Grace Morris Kathryn C. DO Santiago, Patrick MD [facility] ~ APPROVED REPORT Study performed: 08/04/2021 12:06:16 EXAM: Comprehensive 2D, Doppler, and color-flow Echocardiogram Patient Location: Bedside Room #: 203 Status: routine BSA: 1.57 HR: 99 bpm BP: 174/96 mmHg Rhythm: Atrial Fibrillation Other Information Study Quality: Good Indications Atrial Fibrillation Hypertension/HDD 2D Dimensions RVDd: 32.82 mm IVSd: 7.93 (7-11mm) LVOT Diam: 19.41 (18-24mm) LVDd: 48.95 mm PWd: 7.67 (7-11mm) Ascending Ao: 32.70 (22-36mm) LVDs: 34.88 (25-40mm) Left Atrium: 32.19 (27-40mm) Aortic Root: 32.12 mm IVC: 20.00 mm Volumes Left Atrial Volume (Systole) Single Plane 4CH: 42.12 mL Single Plane 2CH: 30.58 mL LA ESV Index: 34.00 mL/m2 Aortic Valve AoV Peak Matthieu.: 1.69 m/s AO Peak Gr.: 11.46 mmHg LVOT Max P.35 mmHg LVOT Max V: 0.92 m/s [facility] [address] [place] [address] 2 D/M-MODE ECHOCARDIOGRAM Name: MATEUSZ ROA Room #: 203-P [facility] IN [facility]#: [id number] Admission: 08/03/21 Attend Phys: Fely Escudero Discharge: Date of : 34 Report #: [id number] Vmax: 1.60 cm2 Pulmonary Valve PV Peak Matthieu.: 1.15 m/s PV Peak Gr.: 5.30 mmHg Tricuspid Valve TR Peak Matthieu.: 3.18 m/s TR Peak Gr.: 40.55 mmHg PA Pressure: 51.00 mmHg Left Ventricle The left ventricle is normal size. There is normal LV segmental wall motion. There is normal left ventricular wall thickness. The left ventricular systolic function is normal. The left ventricular ejection fraction is within the normal range. LVEF is 55-60%. This study is not technically sufficient to allow evaluation of the LV diastolic function due to atrial fibrillation. Right Ventricle The right ventricle is normal size. The right ventricular systolic function is normal. Atria Left atrium is borderline dilated. Right atrium is at the upper limits of normal. Aortic Valve The aortic valve is normal in structure. Aortic valve is calcified. Mild aortic regurgitation. There is no aortic valvular stenosis. Mitral Valve The mitral valve is normal in structure. Mild mitral regurgitation. No evidence of mitral valve stenosis. Tricuspid Valve The tricuspid valve is normal in structure. There is mild tricuspid regurgitation. Estimated PAP 51 mmHg. There is moderate pulmonary hypertension. Pulmonic Valve The pulmonary valve is normal in structure. There is no pulmonic valvular regurgitation. Great Vessels The aortic root is normal in size. IVC is dilated and collapses [facility] [address] [place] [address] 2 D/M-MODE ECHOCARDIOGRAM Name: MATEUSZ ROA Room #: 203-P [facility] IN M.R.#: [id number] Admission: 08/03/21 Attend Phys: Fely Escudero Discharge: Date of : 34 Report #: [id number] <50% with inspiration. Pericardium There is no pericardial effusion. <Conclusion> Normal left ventricle size/wall thickness Ejection fraction 60% Normal right ventricle size/function Left atrium borderline dilated Moderate aortic valve calcification, no stenosis detected Moderate the mitral annular calcification Mild mitral valve insufficiency Mild tricuspid valve insufficiency Moderate pulmonary hypertension Pulmonary systolic pressure estimated 51 mmHg No pericardial effusion Normal aortic root size. <ELECTRONICALLY SIGNED> By: Valdemar Mckeon MD, FACC 08/04/21 1300 1300 1300 Valdemar Mckeon MD, FACC /INF
--- NOTE | 2021-08-04 15:03 | NUR ---
Chart reviewed and case discussed with the care team. Design Maintenance Engineer attempted to speak with the pt but she is currently sleeping. Design Maintenance Engineer spoke with her cousin/dpalvaro Lanier and he was here earlier today to visit her. Design Maintenance Engineer spoke with Jennifer in soc services at [facility]. The pt is known to cm from a recent admission last month for GI bleed. She is being treated for that along with pneumonia. 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 She is normally up to a w/c with min assist and self propels around the unit. Yannick is involved with all of her care decisions and has requested an updated from the attending. Message sent to the attending with his contact number. He is concerned about her recurrent anemia with no obvious source. Dc plan is to return to retirement care at [facility]. They are holding her room. Clinical update faxed to Jennifer. Will follow.
[2021-08-05 04:45] VITALS: BP 146/79
[2021-08-05 07:21] VITALS: BP 145/83
--- NOTE | 2021-08-05 11:01 | NUR ---
Assumed care of pt this AM. Pt is oriented x4, forgetful, tearful. SA on the monitor, on 4L NC. With morning medications, pt coughed after pill. Put pills in applesauce & pt was able to swallow completely. Had speech therapy re-eval pt, pt to have no straws. Pt failed cog eval w/ speech therapy today. Pt does have DPOA, Yannick. Will continue to assess pt needs throughout shift.
[2021-08-05 11:30] VITALS: BP 140/57
[2021-08-05 15:01] VITALS: BP 146/63
--- NOTE | 2021-08-05 16:53 | NUR ---
Pallative care consult. Pallative care met with patient today and plans f/u of patients cousin Jose Luis.
[2021-08-05 20:43] VITALS: BP 128/48
[2021-08-06 05:11] VITALS: BP 135/58
--- NOTE | 2021-08-06 05:22 | NUR ---
PT ALERT TO SELF AND PLACE.[place] TO D/D WITH BLOOD TINGED U/O. PT IS ON 10/21L/NC,AND IS STABLE AT SATS >95%.DENIES PAIN. CONTINUES ON IVF AND IV ABTS. SWALLOWS MEDS WELL IN APPLESAUCE.GETS RESTLESS SOMETIMES, APPEARS REALLY WEAK. NO FURTHER CONCERNS.
[2021-08-06 07:00] VITALS: BP 141/60
[2021-08-06 09:17] LABS: HEMOGLOBIN 8.1 gm/dL (12.0-15.0); MCH 32.6 pg (26.0-34.0); MCHC 31.2 g/dL (28.0-37.0); MCV 104.6 fL (80.0-100.0); RBC 2.48 mil/uL (4.20-5.00); RDW 21.2 % (10.5-14.5)
[2021-08-06 11:10] VITALS: BP 132/59
[2021-08-06] MEDS ORDERED: IPRAT-ALBUT 0.5-3 ML INH (13:50)
--- NOTE | 2021-08-06 13:57 | NUR ---
PT IS ALERT TO SELF, PLACE, AND DATE. PT IS FORGETFUL. PT TOLERATING 2L NC. FINE CRACKLES THROUGHOUT LUNGS. SINUS ARRYTHMIA WITH PVCs ON THE MONITOR. PT HAS POOR APPETITE AND HAS NOT WANTED TO EAT MEALS. PT HAS TAKEN A FEW BITES OF EACH MEAL. PT IS NOW COMFORT CARE. PT WILL DISCHARGE BACK TO FACILITY TODAY. REDNESS TO COCCYX. APPLIE ZGUARD TO AREA. NO COMPLAINTS OF PAIN OR DISCOMFORT. TOLERATES MEDS IN APPLESAUCE. WILL CONTINUE TO MONITOR.
--- NOTE | 2021-08-06 14:29 | NUR ---
Pt's cousin/dpoa Yannick talked with the attending and pall care yesterday. He has talked with the pt as well as both in agreement for return to the [facility] with hospice services. Pt has been DNR prior to admission. They are interested in hospice referral for admission upon return to the [facility]. [facility] primarily uses [facility]. Yannick is in agreement and declined additional referrals. Referral called and faxed to Hospice and they will contact him this afternoon to arrange for admission paperwork either this evening or tomorrow. Dc orders faxed to both the hospice and [facility]. W/c van with 2lnc o2 arranged for transport at 5-5:30 this evening. All parties updated. Chart copy, dnr and dc orders ready to be sent with the pt.
[2021-08-06 15:15] VITALS: BP 130/60
--- NOTE | 2021-08-06 15:58 | NUR ---
PT IS RETURNING TO [facility]. CALLED REPORT TO ADRIAN ENCINAS. HUANG VERBALIZED UNDERSTANDING OF POC. PT IS SCHEDULED FOR TRANSPORT. WILL CONTINUE TO MONITOR.
--- NOTE | 2021-08-06 16:49 | NUR ---
PT LEFT VIA WHEELCHAIR WITH TRANSPORTATION TO [facility]. PT HAS BELONGINGS.
== END 2021-08-06 16:50 | disposition hospice, home (50) | DRG 871 ==
LOC: ER 13:37 → 2N 18:30 → EROBS 18:30 → 2N 19:51
PROVIDERS: Nurse Practitioner; Nurse Practitioner Family; ADMIT Hospitalist; ATTEND Hospitalist
PROC: 30233N1 Transfusion of Nonautologous Red Blood Cells into Peripheral Vein, Percutaneous Approach (ICD-10-PCS; principal; 2021-08-04)
DX: A41.9 Sepsis, unspecified organism (principal); J96.01 Acute respiratory failure with hypoxia; J18.9 Pneumonia, unspecified organism; E43 Unspecified severe protein-calorie malnutrition; N39.0 Urinary tract infection, site not specified; E87.1 Hypo-osmolality and hyponatremia; D62 Acute posthemorrhagic anemia; Z20.822 Contact with and (suspected) exposure to COVID-19; I10 Essential (primary) hypertension; M19.90 Unspecified osteoarthritis, unspecified site; M51.37 Other intervertebral disc degeneration, lumbosacral region; F31.9 Bipolar disorder, unspecified; Y95 Nosocomial condition; Z66 Do not resuscitate; D69.6 Thrombocytopenia, unspecified; F20.9 Schizophrenia, unspecified; E87.8 Other disorders of electrolyte and fluid balance, not elsewhere classified; R41.841 Cognitive communication deficit; I48.91 Unspecified atrial fibrillation; Z79.899 Other long term (current) drug therapy; Z79.01 Long term (current) use of anticoagulants; Z86.73 Personal history of transient ischemic attack (TIA), and cerebral infarction without residual deficits; Z68.20 Body mass index [BMI] 20.0-20.9, adult; Z87.891 Personal history of nicotine dependence
CPT/HCPCS: 10081